=== PATIENT | female | born 2000 | race Two or more races ===

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

== ENCOUNTER 2018-08-15 12:40 | Emergency (ER) | payer SELFPAY ==
[2018-08-15 12:44] VITALS: BP 121/74
[2018-08-15] MEDS ORDERED: HYDROCODONE/ACETAMINOPHEN 5-325 MG TABLET PO ONE (13:02)
[2018-08-15] MEDS ORDERED: LIDOCAINE 5% (700 MG) TRANSDERMAL ADH..PATCH TP ONE (13:02)
--- NOTE | 2018-08-15 13:05 | ER Document Report ---
HPI - HPI Patient complains to provider of: Left knee pain Time Seen by Provider: 08/15/18 12:52 Onset/Duration: Persistent Quality of pain: Achy Pain Level: 4 Context: Patient presents complaining of chronic left knee pain since a dislocation that occurred 2 years ago. Patient states pain is been worse over the past 2 weeks. Patient denies any recent injury. Associated Symptoms: Other - Left knee pain Exacerbated by: Movement, Walking Relieved by: Denies Similar symptoms previously: Yes Recently seen / treated by doctor: No - ROS ROS below otherwise negative: Yes Systems Reviewed and Negative: Yes All other systems reviewed and negative - CONSTITUTIONAL Constitutional: DENIES: Fever - NEURO Neurology: DENIES: Weakness - REPRODUCTIVE Reproductive: DENIES: : - MUSCULOSKELETAL Musculoskeletal: REPORTS: Extremity pain - DERM Skin Color: Normal Skin Problems: None Past Medical History - General Information source: Patient - Social History Smoking Status: Never Smoker Frequency of alcohol use: None Drug Abuse: None Occupation: call center Lives with: Family Family History: None, CAD, DM, Hyperlipidemia, Hypertension, Malignancy, Thyroid Disfunction. denies: COPD, CVA - Medical History Medical History: Negative Neurological Medical History: Denies: Hx Seizures Musculoskeletal Medical History: Reports Hx Musculoskeletal Trauma Past Surgical History: Reports: Hx Abdominal Surgery - neela cyst 02/27 - Immunizations Immunizations up to date: Yes Hx Diphtheria, Pertussis, Tetanus Vaccination: Yes Vertical Provider Document - CONSTITUTIONAL Agree With Documented VS: Yes Exam Limitations: No Limitations General Appearance: WD/WN, No Apparent Distress - INFECTION CONTROL TRAVEL OUTSIDE OF THE [place] IN LAST 30 DAYS: No - HEENT HEENT: Atraumatic, Normocephalic - NECK Neck: Normal Inspection, Supple - RESPIRATORY Respiratory: No Respiratory Distress - CARDIOVASCULAR Pulses: Normal: Posterior tibial, Dorsalis pedis - MUSCULOSKELETAL/EXTREMETIES Musculoskeletal/Extremeties: MAEW, FROM, Tender - Tenderness to left knee along joint line, no laxity with varus or valgus maneuvers. Patellar tendon intact. No joint effusion. Normal skin color temperature overlying joint, No Edema. negative: Eccymosis - NEURO Level of Consciousness: Awake, Alert, Appropriate Motor/Sensory: No Motor Deficit, No Sensory Deficit - DERM Integumentary: Warm, Dry, No Rash Course - Re-evaluation Re-evalutation: 08/15/18 13:10 Patient with chronic left knee joint after patellar dislocation 2 years ago. Patient states pain is worsened over the past 2 weeks. No acute injury. No concern for septic arthritis, dislocation or fracture. Will immobilize and encourage outpatient follow-up with her orthopedic surgeon for recheck. - Vital Signs Vital signs: Temp Pulse Resp BP Pulse Ox 98.3 F 93 H 18 121/74 97 08/15/18 12:43 08/15/18 12:43 08/15/18 12:43 08/15/18 12:43 08/15/18 12:43 Procedures - Immobilization Right Knee Pre-Proc Neuro Vasc Exam: Normal Immobilizer type: Knee immobilizer Performed by: PCT Post-Proc Neuro Vasc Exam: Normal Alignment checked and good: Yes Discharge - Discharge Clinical Impression: Left knee pain Qualifiers: Chronicity: unspecified Qualified Code(s): M25.562 - Pain in left knee Sprain, knee Qualifiers: Encounter type: initial encounter Involved ligament of knee: unspecified ligament Laterality: left Qualified Code(s): S83.92XA - Sprain of unspecified site of left knee, initial encounter Condition: Stable Disposition: HOME, SELF-CARE Instructions: Use of Crutches ([facility]), Ice & Elevation ([facility]), Knee Immobilizing Splint ([facility]), Sprained Knee ([facility]) Additional Instructions: Return immediately for any new or worsening symptoms Followup with your primary care provider, call tomorrow to make a followup appointment Weightbearing as tolerated Follow-up with orthopedics for further evaluation, call Friday for an appointment Prescriptions: Naproxen [Naprosyn 250 Nmg Tablet] 1 tab PO BID #14 tablet Referrals: ELIAS ORDAZ NP [Primary Care Provider] - Follow up as needed [facility] [Provider Group] - 08/17/18
== END 2018-08-15 13:18 | disposition home or self-care (01) ==
LOC: ER 12:40 → EEVIPCON 12:40 → ER 13:18
DX: S83.92XA Sprain of unspecified site of left knee, initial encounter (principal); M25.562 Pain in left knee; G89.29 Other chronic pain; X58.XXXA Exposure to other specified factors, initial encounter
CPT/HCPCS: 99283; L1830

== ENCOUNTER 2019-04-04 18:45 | Emergency (ER) | payer MEDICAID ==
[2019-04-04 18:55] VITALS: BP 122/66
[2019-04-04] MEDS ORDERED: ACETAMINOPHEN 325 MG TABLET PO ONE (19:51)
--- NOTE | 2019-04-04 20:00 | ER Document Report ---
HPI - HPI Patient complains to provider of: Sore throat, congestion Time Seen by Provider: 04/04/19 19:46 Onset: Other - 2 days Onset/Duration: Persistent Quality of pain: Achy Pain Level: 3 Context: Patient presents complaining of sore throat and congestion that started 2 days ago. Patient reports mild cough. No fever. Patient is currently 31 weeks G1, P0. Patient does report movement. Associated Symptoms: Nonproductive cough, Earache, Rhinnorhea, Sore throat. denies: Chest pain, Chills, Fever, Nausea, Vomiting Exacerbated by: Denies Relieved by: Denies Similar symptoms previously: No Recently seen / treated by doctor: No - ROS ROS below otherwise negative: Yes Systems Reviewed and Negative: Yes All other systems reviewed and negative - CONSTITUTIONAL Constitutional: DENIES: Fever - EENT EENT: REPORTS: Sore Throat, Nasal Drainage-Clear, Congestion - CARDIOVASCULAR Cardiovascular: DENIES: Chest pain - RESPIRATORY Respiratory: REPORTS: Coughing. DENIES: Trouble Breathing - GASTROINTESTINAL Gastrointestinal: DENIES: Nausea, Patient vomiting, Diarrhea - URINARY Urinary: DENIES: Dysuria - REPRODUCTIVE Reproductive: REPORTS: :. DENIES: Abnormal bleeding / discharge - DERM Skin Color: Normal Skin Problems: None Past Medical History - General Information source: Patient - Social History Smoking Status: Never Smoker Chew tobacco use (# tins/day): No Frequency of alcohol use: None Drug Abuse: None Occupation: none Lives with: Family Family History: None, CAD, DM, Hyperlipidemia, Hypertension, Malignancy, Thyroid Disfunction. denies: COPD, CVA Patient has suicidal ideation: No Patient has homicidal ideation: No - Medical History Medical History: Negative Pulmonary Medical History: Denies: Hx Asthma Neurological Medical History: Denies: Hx Seizures, Hx Parkinson's Disease GI Medical History: Denies: Hx Cirrhosis, Hx Gastroesophageal Reflux Disease, Hx Ulcer Musculoskeletal Medical History: Reports Hx Musculoskeletal Trauma Past Surgical History: Reports: Hx Abdominal Surgery - neela cyst 02/27 - Immunizations Immunizations up to date: Yes Hx Diphtheria, Pertussis, Tetanus Vaccination: Yes Vertical Provider Document - CONSTITUTIONAL Agree With Documented VS: Yes Exam Limitations: No Limitations General Appearance: WD/WN, No Apparent Distress - INFECTION CONTROL TRAVEL OUTSIDE OF THE [place] IN LAST 30 DAYS: No - HEENT HEENT: Atraumatic, Normocephalic, Pharyngeal Tenderness, Pharyngeal Erythema. negative: Pharyngeal Exudate, Tympanic Membrane Red, Tympanic Membrane Bulging Notes: clear rhinorrhea - NECK Neck: Normal Inspection, Supple. negative: Lymphadenopathy-Left, Lymphadenopathy-Right - RESPIRATORY Respiratory: No Respiratory Distress, Chest Non-Tender, Other - Occasional dry cough. negative: Rhonchi, Wheezing - CARDIOVASCULAR Cardiovascular: Regular Rhythm, No Murmur, Tachycardia - GI/ABDOMEN Gastrointestinal: Abdomen Soft, Abdomen Non-Tender - BACK Back: Normal Inspection - MUSCULOSKELETAL/EXTREMETIES Musculoskeletal/Extremeties: MAEW - NEURO Level of Consciousness: Awake, Alert, Appropriate Motor/Sensory: No Motor Deficit - DERM Integumentary: Warm, Dry, No Rash Course - Re-evaluation Re-evalutation: 04/04/19 20:54 Rapid strep test negative, no concern for [employer]. Respirations even unlabored, patient nontoxic in appearance. Patient without any history of fever. Discussed worsening signs or symptoms that patient should return. Patient encouraged to follow-up with her [employer] tomorrow for recheck. - Vital Signs Vital signs: Temp Pulse Resp BP Pulse Ox 98.0 F 109 H 16 122/66 97 04/04/19 18:52 04/04/19 18:52 04/04/19 18:52 04/04/19 18:52 04/04/19 18:52 - Laboratory Laboratory results interpreted by me: 04/04/19 20:54 Labs- Entire Visit 04/04/19 20:20 Group A Strep Rapid NEGATIVE Discharge - Discharge Clinical Impression: Sore throat, Nasal congestion Condition: Stable Disposition: HOME, SELF-CARE Instructions: Acetaminophen, Sore Throat ([facility]) Additional Instructions: Return immediately for any new or worsening symptoms Followup with your primary care provider, call tomorrow to make a followup appointment Throat culture is pending, we will call if you need any different treatment Referrals: [facility] [Provider Group] - Follow up tomorrow
== END 2019-04-04 21:21 | disposition home or self-care (01) ==
LOC: ER 18:45
DX: O26.893 Other specified pregnancy related conditions, third trimester (principal); J02.9 Acute pharyngitis, unspecified; R09.81 Nasal congestion; R05 Cough; J34.89 Other specified disorders of nose and nasal sinuses; Z3A.31 31 weeks gestation of pregnancy
CPT/HCPCS: 99283; 87070; 87880; J3490

== ENCOUNTER 2019-04-29 17:46 | Outpatient (CLI) | payer MEDICAID ==
[2019-04-29 18:27] LABS: APPEARANCE,URINE SLIGHTLY-CLOUDY; BILIRUBIN,URINE NEGATIVE (NEGATIVE); COLOR,URINE YELLOW; GLUCOSE, URINE NEGATIVE (NEGATIVE); KETONES,URINE TRACE mg/dL (NEGATIVE); LEUKOCYTE ESTERASE,URINE NEGATIVE (NEGATIVE); NITRITE,URINE NEGATIVE (NEGATIVE); PROTEIN,URINE NEGATIVE (NEGATIVE); URINE SPECIFIC GRAVITY 1.016; UROBILINOGEN,URINE NEGATIVE mg/dL (<2.0)
[2019-04-29 18:42] LABS: URINE AMPHETAMINES SCREEN NEGATIVE; URINE BARBITURATES SCREEN NEGATIVE; URINE BENZODIAZEPINES SCREEN NEGATIVE; URINE COCAINE SCREEN NEGATIVE; URINE MARIJUANA (THC) SCREEN NEGATIVE; URINE METHADONE SCREEN NEGATIVE; URINE PHENCYCLIDINE SCREEN NEGATIVE
--- NOTE | 2019-04-29 19:14 | RADIOLOGY REPORT (SQ) ---
EXAM DESCRIPTION: U/S OB LIMITED COMPLETED DATE/TIME: 04/29/2019 6:54 pm REASON FOR STUDY: placenta, well being COMPARISON: None. TECHNIQUE: Limited transabdominal grayscale ultrasound for evaluation of specific requested obstetri [place] parameters. LIMITATIONS: None. FINDINGS: CERVICAL LENGTH: 2.5 cm. Closed. GEOVANI: 17 cm. Cm. FHR: 147 beats per minute. PRESENTATION: Cephalic. PLACENTA: Anterior, grade 1 ANATOMY: Not assessed OTHER: Intrauterine gestation of 34 weeks 3 days. IMPRESSION: LIMITED OBSTETRICAL ULTRASOUND WITH MEASURED PARAMETERS DELINEATED ABOVE. Trimester of : Third trimester - 28 weeks to delivery. TECHNICAL DOCUMENTATION: JOB ID: [id number] 2010 [employer]- All Rights Reserved Reading location - IP/workstation name: [email or web address]
[2019-04-29 19:20] LABS: ABSOLUTE LYMPHOCYTES (AUTO) 1.4 10^3/uL (0.5-4.7); ABSOLUTE MONOCYTES (AUTO) 0.5 10^3/uL (0.1-1.4); ABSOLUTE NEUT (AUTO) 4.9 10^3/uL (1.7-8.2); BASOPHILS % (AUTO) 0.3 % (0-2); EOSINOPHILS % (AUTO) 0.5 % (0-6); HEMATOCRIT 33.2 % (36.0-47.0); HEMOGLOBIN 11.3 g/dL (12.0-15.5); LYMPHOCYTES % (AUTO) 20.2 % (13-45); MEAN CORPUSCULAR HEMOGLOBIN 24.6 pg (27.0-33.4); MEAN CORPUSCULAR HGB CONC 34.1 g/dL (32.0-36.0); MEAN CORPUSCULAR VOLUME 72 fl (80-97); MONOCYTES % (AUTO) 6.8 % (3-13); PLATELET COUNT 261 10^3/uL (150-450); RED BLOOD COUNT 4.61 10^6/uL (3.72-5.28); RED CELL DISTRIBUTION WIDTH 15.8 % (11.5-14.0); SEGMENTED NEUTROPHILS % (AUTO) 72.2 % (42-78); TOTAL CELLS COUNTED % (AUTO) 100 %; WHITE BLOOD COUNT 6.8 10^3/uL (4.0-10.5)
[2019-04-29 19:27] LABS: INTERNATIONAL RATION (INR) 0.97; PROTHROMBIN TIME 12.9 SEC (11.4-15.4)
[2019-04-29 19:28] LABS: PARTIAL THROMBOPLASTIN TIME 28.2 SEC (23.5-35.8)
--- NOTE | 2019-04-29 19:52 | Non Stress Test Report ---
Non Stress Test Datetime Report Generated by CPN: 04/29/2019 19:51 DEMOGRAPHIC EGA NST: 34.3 VITAL SIGNS Temperature - NST: 98.7 Pulse - NST: 108 RESP - NST: 16 NBPSYS NST: 117 NBPDIA NST: 64 MONITORING Monitor Explained: Monitor Explained; Test Explained; Patient Verbalized Understanding Time on Monitor: 04/29/2019 18:00 Time off Monitor: 04/29/2019 19:41 NST Duration: 101 NST INTERVENTIONS NST Interventions: PO Hydration Physician Notified NST: Dr. Doan BABY A: [id number] BABY A Movement : Present Contraction Frequency : none FHR Baseline : 140 Accelerations : 15X15 Decelerations : None Variability : Moderate 6-25bpm NST Review: Meets Criteria for Reactive NST NST Review and Verified By : Bneny Pillai RN NST Results: Reactive NST REPORT Report Trigger: Send Report
[2019-04-29 22:00] LABS: RHOGAM DOSE INDICATED 0 VIAL(S)
== END 2019-04-29 19:45 | disposition home or self-care (01) ==
LOC: LC 17:46
PROVIDERS: ATTEND Student in an Organized Health Care Education/Training Program
PROC: 4A1HXCZ Monitoring of Products of Conception, Cardiac Rate, External Approach (ICD-10-PCS; principal; 2019-04-29)
DX: O36.8130 Decreased fetal movements, third trimester, not applicable or unspecified (principal); Z3A.34 34 weeks gestation of pregnancy
CPT/HCPCS: 36415; 59025; 76815; 80307; 81005; 84112; 85025; 85460; 85610; 85730; 86900; 86901

== ENCOUNTER 2019-05-27 14:23 | Outpatient (CLI) | payer MEDICAID ==
--- NOTE | 2019-05-27 15:39 | Non Stress Test Report ---
Non Stress Test Datetime Report Generated by CPN: 05/27/2019 15:38 DEMOGRAPHIC Test Number: 2 EGA NST: 38.3 INDICATION Indication for Study (NST) Other: repeat NST tachycardia in office VITAL SIGNS Temperature - NST: 98.0 Pulse - NST: 96 RESP - NST: 16 NBPSYS NST: 102 NBPDIA NST: 57 MONITORING Monitor Explained: Monitor Explained; Test Explained; Patient Verbalized Understanding Time on Monitor: 05/27/2019 14:30 Time off Monitor: 05/27/2019 15:20 NST Duration: 50 NST INTERVENTIONS NST Interventions: PO Hydration Physician Notified NST: KDuncan,CNM Physician Notified NST: K Lopez CNM BABY A: [id number] BABY A Movement : Present Contraction Frequency : 0 FHR Baseline : 130 Accelerations : 15X15 Decelerations : None Variability : Moderate 6-25bpm NST Review: Questionable if Meets Criteria for Reactive NST NST Review and Verified By : JNiebuhr,RN NST Results: Reactive NST REPORT Report Trigger: Send Report
== END 2019-05-27 15:34 | disposition home or self-care (01) ==
LOC: LC 14:23
PROVIDERS: ATTEND Student in an Organized Health Care Education/Training Program
DX: O36.8330 Maternal care for abnormalities of the fetal heart rate or rhythm, third trimester, not applicable or unspecified (principal); Z3A.38 38 weeks gestation of pregnancy
CPT/HCPCS: 59025

== ENCOUNTER 2019-06-07 12:17 | Outpatient (CLI) | payer MEDICAID ==
--- NOTE | 2019-06-07 13:02 | Non Stress Test Report ---
Non Stress Test Datetime Report Generated by CPN: 06/07/2019 13:02 DEMOGRAPHIC EGA NST: 40.0 VITAL SIGNS Temperature - NST: 98.2 Pulse - NST: 96 RESP - NST: 18 NBPSYS NST: 118 NBPDIA NST: 57 MONITORING Monitor Explained: Monitor Explained; Test Explained; Patient Verbalized Understanding Time on Monitor: 06/07/2019 12:30 Time off Monitor: 06/07/2019 12:54 NST Duration: 24 NST INTERVENTIONS NST Interventions: PO Hydration Physician Notified NST: C. Seals, CNM BABY A: [id number] BABY A Movement : Present Contraction Frequency : None FHR Baseline : 135 Accelerations : 15X15 Decelerations : None Variability : Moderate 6-25bpm NST Review: Meets Criteria for Reactive NST NST Review and Verified By : Dorcas Bruce RN NST Results: Reactive NST COMMENTS NST Comments: C. Seals, CNM on unit and strip reviewed. NST REPORT Report Trigger: Send Report
== END 2019-06-07 13:01 | disposition home or self-care (01) ==
LOC: LC 12:17
PROVIDERS: ATTEND Student in an Organized Health Care Education/Training Program
DX: O40.3XX0 Polyhydramnios, third trimester, not applicable or unspecified (principal); Z3A.40 40 weeks gestation of pregnancy
CPT/HCPCS: 59025

== ENCOUNTER 2019-06-14 07:06 | Inpatient (IN) | payer MEDICAID ==
[2019-06-14] MEDS ORDERED: RINGERS SOLUTION,LACTATED 1,000 ML IV ONE (07:36)
[2019-06-14] MEDS ORDERED: RINGERS SOLUTION,LACTATED 1,000 ML IV PRN (07:36)
[2019-06-14] MEDS ORDERED: ONDANSETRON HCL INJ/PF 4 MG/2 ML SDV IV PRN (07:46)
[2019-06-14 07:58] LABS: APPEARANCE,URINE TURBID; BILIRUBIN,URINE NEGATIVE (NEGATIVE); COLOR,URINE YELLOW; GLUCOSE, URINE NEGATIVE (NEGATIVE); KETONES,URINE NEGATIVE (NEGATIVE); LEUKOCYTE ESTERASE,URINE TRACE (NEGATIVE); NITRITE,URINE NEGATIVE (NEGATIVE); PROTEIN,URINE 100 mg/dL (NEGATIVE); URINE SPECIFIC GRAVITY 1.006; UROBILINOGEN,URINE NEGATIVE mg/dL (<2.0)
[2019-06-14] MEDS ORDERED: ONDANSETRON HCL INJ/PF 4 MG/2 ML SDV ONE (08:00)
--- NOTE | 2019-06-14 08:14 | Admission Physical ---
Datetime Report Generated by CPN: 06/14/2019 08:14 CURRENT ADMISSION Chief Complaint: Uterine Contractions; Suspected Ruptured Membranes Indication for Induction: Not Applicable Admit Impression : Term, Intrauterine ; Active Labor; Ruptured Membranes Admit Plan: Admit to Unit ALLERGIES Medication Allergies: No Medication Allergies: No Known Allergies (06/14/2019) Latex: No Latex Allergies Food Allergies: none Environmental Allergies: none OBSTETRICAL HISTORY EDC: 06/07/2019 00:00 : 1 Para: 0 Term: 0 : 0 SAB: 0 IAB: 0 Ectopic: 0 Livin Cesareans: 0 VBACs: 0 Multiple Births: 0 Gestational Diabetes: No Rh Sensitization: No Incompetent Cervix: No LAKSHMI: No Infertility: No ART Treatment: No Uterine Anomaly: No IUGR: No Hx Previous C/S: No Macrosomia: No Hx Loss/Stillborn: No PIH: No Hx : No Placenta Previa/Abruption: No Depression/PP Depression: No PTL/PROM: No Post Hemorrhage: No Current Procedures: Ultrasound Obstetrical History Comments: G1-Current SEE RECORDS Alcohol: No Marijuana : No Cocaine: No Other Illicit Drugs: No Cigarettes: Never Smoker. [id number] MEDICAL HISTORY Diabetes: No Blood Transfusion: No Pulmonary Disease (Asthma, TB): No Breast Disease: No Hypertension: No Environmental Program Manager Surgery: No Heart Disease: No Hosp/Surgery: Yes Autoimmune Disorder: No Anesthetic Complications: No Kidney Disease: No Abnormal Pap Smear: No Neuro/Epilepsy: No Psychiatric Disorders: No Other Medical Diseases: No Hepatitis/Liver Disease: No Significant Family History: No Varicosities/Phlebitis: No Trauma/Violence : No Thyroid Dysfunction: No Medical History Comments: Cyst removal 2018, sickle cell trait INFECTIOUS HISTORY Gonorrhea: No Genital Herpes: No Chlamydia: No Tuberculosis: No Syphilis: No Hepatitis: No HIV/AIDS Exposure: No Rash or Viral Illness: No HPV: No PHYSICAL EXAM General: Normal HEENT: Normal Neurologic: Normal Thyroid: Deferred Heart: Normal Lungs: Normal Breast: Deferred Back: Normal Abdomen: Normal Genitourinary Exam: Normal Extremities: Normal DTRs: Normal Pelvic Type: Adequate Vital Signs: Reviewed VAGINAL EXAM Dilatation: 2 Effacement: 80 Station: 0 Contraction Comments: q 4-6 MEMBRANES Membranes: Ruptured Amniotic Fluid Color: Meconium, Light FETUS A EGA: 41.0 Monitoring: External US FHR- Baseline: 125 Variability: Moderate 6-25bpm Accelerations: 15X15 FHR Category: Category II Presentation: Vertex Admit Comment: 18yo at 41+0ega presents for SROM at 0630 with light meconium. POlyhydramnios. +SC trait. FOB negative per patient. GBS negative. Admit and augment with pitocin. Anticipate . efw on 05/13 was 6# PLANS FOR LABOR AND DELIVERY Pain Management: Epidural Feeding Preference: Breast Benefit of Breast Feed Discussed: Yes Circumcision: N/A INFORMED CONSENT Informed Consent Obtained: Vaginal Delivery; Risks, Benefits and Alternatives Discussed Signature: with User ID: [email or web address]
[2019-06-14 08:20] LABS: URINE AMPHETAMINES SCREEN NEGATIVE; URINE BARBITURATES SCREEN NEGATIVE; URINE BENZODIAZEPINES SCREEN NEGATIVE; URINE COCAINE SCREEN NEGATIVE; URINE MARIJUANA (THC) SCREEN NEGATIVE; URINE METHADONE SCREEN NEGATIVE; URINE PHENCYCLIDINE SCREEN NEGATIVE
[2019-06-14 08:40] LABS: ABSOLUTE BASOPHILS # (AUTO) 0.1 10^3/uL (0.0-0.2); ABSOLUTE LYMPHOCYTES (AUTO) 1.9 10^3/uL (0.5-4.7); ABSOLUTE MONOCYTES (AUTO) 0.5 10^3/uL (0.1-1.4); ABSOLUTE NEUT (AUTO) 4.3 10^3/uL (1.7-8.2); BASOPHILS % (AUTO) 0.7 % (0-2); EOSINOPHILS % (AUTO) 0.7 % (0-6); HEMATOCRIT 37.1 % (36.0-47.0); HEMOGLOBIN 12.6 g/dL (12.0-15.5); LYMPHOCYTES % (AUTO) 28.3 % (13-45); MEAN CORPUSCULAR HEMOGLOBIN 25.1 pg (27.0-33.4); MEAN CORPUSCULAR VOLUME 74 fl (80-97); MONOCYTES % (AUTO) 7.6 % (3-13); PLATELET COUNT 181 10^3/uL (150-450); RED BLOOD COUNT 5.02 10^6/uL (3.72-5.28); RED CELL DISTRIBUTION WIDTH 20.7 % (11.5-14.0); SEGMENTED NEUTROPHILS % (AUTO) 62.7 % (42-78); TOTAL CELLS COUNTED % (AUTO) 100 %; WHITE BLOOD COUNT 6.8 10^3/uL (4.0-10.5)
[2019-06-14] MEDS ORDERED: EPHEDRINE SULFATE INJ 50 MG/1 ML AMPULE ONE (08:56)
[2019-06-14] MEDS ORDERED: FENTANYL/BUPIVACAINE/NS/PF 300 MCG/150 ML RTUINJ EPI ONE (08:57)
[2019-06-14] MEDS ORDERED: OXYTOCIN/NORMAL SALINE 20 UNIT/1,000 ML RTUINJ ONE (08:57)
[2019-06-14] MEDS ORDERED: MISOPROSTOL 0.2 MG TABLET ONE (08:57)
[2019-06-14] MEDS ORDERED: LIDOCAINE 1% INJ-PF (10 MG/ML) 30 ML SDV ONE (08:57)
[2019-06-14] MEDS ORDERED: BUPIVACAINE HCL 0.25 % INJ/PF (2.5 MG/1 ML) 30 ML VIAL ONE (08:57)
[2019-06-14] MEDS ORDERED: OXYTOCIN 10 UNIT/ML VIAL ONE (08:57)
[2019-06-14] MEDS ORDERED: MISOPROSTOL 0.1 MG TABLET PR ONE (13:00)
[2019-06-14] MEDS ORDERED: NA PHOS,M-B/NA PHOS,DI-BA (ADULT) 133 ML ENEMA PR PRN (13:25)
[2019-06-14] MEDS ORDERED: PROMETHAZINE HCL 25 MG TABLET PO PRN (13:25)
[2019-06-14] MEDS ORDERED: MAGNESIUM HYDROXIDE SUSP 30 ML UDCUP PO PRN (13:25)
[2019-06-14] MEDS ORDERED: PROMETHAZINE HCL INJ 25 MG/1 ML VIAL IV PRN (13:25)
[2019-06-14] MEDS ORDERED: GLYCERIN/WITCH HAZEL LEAF 1 EACH MED..WIPE TP PRN (13:25)
[2019-06-14] MEDS ORDERED: DIPH/PERTUSS(ACELL)/TETANUS VAC/PF 0.5 ML SYR (>=10YO) IM PRN (13:25)
[2019-06-14] MEDS ORDERED: DIBUCAINE 1% OINTMENT 28 GM TP PRN (13:25)
[2019-06-14] MEDS ORDERED: MEASLES,MUMPS&RUBELLA VACC/PF 0.5 ML VIAL SUBCUT PRN (13:25)
[2019-06-14] MEDS ORDERED: DIPHENHYDRAMINE HCL 25 MG CAPSULE PO PRN (13:25)
[2019-06-14] MEDS ORDERED: PSEUDOEPHEDRINE HCL 30 MG TABLET PO PRN (13:25)
[2019-06-14] MEDS ORDERED: PROMETHAZINE HCL 25 MG SUPP.RECT PR PRN (13:25)
[2019-06-14] MEDS ORDERED: OXYTOCIN/NORMAL SALINE 20 UNIT/1,000 ML RTUINJ IV PRN (13:25)
[2019-06-14] MEDS ORDERED: BENZOCAINE/MENTHOL AEROSOL SPRAY 56 ML ONE (15:14)
[2019-06-14] MEDS ORDERED: IBUPROFEN 800 MG TABLET ONE (15:14)
[2019-06-14] MEDS: IBUPROFEN 800 MG TABLET PO SCH ×2 (15:15→22:51)
[2019-06-14] MEDS: BENZOCAINE/MENTHOL AEROSOL SPRAY 56 ML TOP PRN (15:16)
[2019-06-14] MEDS: FERROUS SULFATE 325 MG TABLET PO SCH (18:27)
[2019-06-14] MEDS: DOCUSATE SODIUM 100 MG CAPSULE PO SCH (18:27)
[2019-06-14] MEDS: FAMOTIDINE 20 MG TABLET PO SCH (22:51)
[2019-06-15] MEDS: ACETAMINOPHEN 325 MG TABLET PO PRN (04:14)
[2019-06-15] MEDS: IBUPROFEN 800 MG TABLET PO SCH ×3 (05:29→21:39)
[2019-06-15 06:56] LABS: HEMATOCRIT 31.4 % (36.0-47.0); HEMOGLOBIN 10.8 g/dL (12.0-15.5); MEAN CORPUSCULAR HEMOGLOBIN 25.4 pg (27.0-33.4); MEAN CORPUSCULAR HGB CONC 34.5 g/dL (32.0-36.0); MEAN CORPUSCULAR VOLUME 74 fl (80-97); PLATELET COUNT 184 10^3/uL (150-450); RED BLOOD COUNT 4.27 10^6/uL (3.72-5.28); RED CELL DISTRIBUTION WIDTH 20.5 % (11.5-14.0); WHITE BLOOD COUNT 8.9 10^3/uL (4.0-10.5)
[2019-06-15] MEDS: PRENATAL VITAMIN W DHA CAPSULE PO SCH (10:23)
[2019-06-15] MEDS: DOCUSATE SODIUM 100 MG CAPSULE PO SCH ×2 (10:24→17:51)
[2019-06-15] MEDS: FERROUS SULFATE 325 MG TABLET PO SCH ×2 (10:24→17:50)
[2019-06-15] MEDS: FAMOTIDINE 20 MG TABLET PO SCH ×2 (10:24→21:40)
[2019-06-15] MEDS: SENNOSIDES/DOCUSATE 8.6-50 MG 1 EACH TABLET PO SCH (10:24)
--- NOTE | 2019-06-15 16:54 | PDOC PROGRESS REPORT ---
Subjective-OB Progress Note for:: 06/15/19 Subjective: reports bleeding slowing, pain controlled with current meds. denies needs Physical Exam (OB) Vital Signs: Temp Pulse Resp BP Pulse Ox 98.1 F 96 16 116/59 L 97 06/15/19 07:49 06/15/19 07:49 06/15/19 07:49 06/15/19 07:49 06/15/19 07:49 Intake & Output 06/14/19 06/15/19 06/16/19 06:59 06:59 06:59 Intake Total 450 Balance 450 Weight 85.3 kg - Abdomen Description: Soft Hernia Present: No Fundal Description: Firm, Midline Fundal Height: u/u - u/2 - Abdominal Distension: No distension Tenderness: Nontender - Extremities Lower extremities: Arturo's sign - neg Calf: Normal, Nontender Objective-Diagnostic Laboratory: 06/15/19 06:26 06/15/19 06:26 WBC 8.9 RBC 4.27 Hgb 10.8 L Hct 31.4 L MCV 74 L MCH 25.4 L MCHC 34.5 RDW 20.5 H Plt Count 184 Assessment and Plan(PN) - Time Spent with Patient Time with patient: Less than 15 minutes - Disposition Anticipated Discharge: Home Within: within 24 hours
[2019-06-15] MEDS: BENZOCAINE/MENTHOL AEROSOL SPRAY 56 ML TOP PRN (20:46)
[2019-06-16] MEDS: IBUPROFEN 800 MG TABLET PO SCH ×2 (05:21→14:00)
[2019-06-16 08:36] VITALS: BP 123/69
[2019-06-16] MEDS: FAMOTIDINE 20 MG TABLET PO SCH (10:59)
[2019-06-16] MEDS: PRENATAL VITAMIN W DHA CAPSULE PO SCH (10:59)
[2019-06-16] MEDS: DOCUSATE SODIUM 100 MG CAPSULE PO SCH (10:59)
[2019-06-16] MEDS: SENNOSIDES/DOCUSATE 8.6-50 MG 1 EACH TABLET PO SCH (10:59)
[2019-06-16] MEDS: FERROUS SULFATE 325 MG TABLET PO SCH (10:59)
[2019-06-16] MEDS: ACETAMINOPHEN 325 MG TABLET PO PRN (11:03)
--- NOTE | 2019-06-16 15:16 | PDOC DISCHARGE SUMMARY ---
Impression - Admit/DC Date/PCP Admission Date/Primary Care Provider: 06/14/19 07:46 DINORA IRENE MD Discharge Date: 06/16/19 - Discharge Diagnosis (1) High vaginal laceration during delivery, delivered Is this a current diagnosis for this admission?: Yes (2) Meconium in amniotic fluid Is this a current diagnosis for this admission?: Yes (3) Post-term Is this a current diagnosis for this admission?: Yes (4) Spontaneous rupture of amniotic membranes Is this a current diagnosis for this admission?: Yes (5) Vaginal delivery Is this a current diagnosis for this admission?: Yes - Assessment Summary: 18yo G1 now P1 s/p ppd 2, stable and ready for discharge, understands warning s/s - Additional Information Resuscitation Status: Full Code Discharge Diet: As Tolerated, Regular Discharge Activity: Activity As Tolerated, Balance Activity w/Rest, No Lifting Over 10 Pounds, No Lifting/Push/Pulling, Pelvic Rest, No tub bath, Walk Frequently Referrals: DINORA IRENE MD [Primary Care Provider] - Prescriptions: Ibuprofen [Motrin 800 mg Tablet] 800 mg PO Q8HP PRN #20 tablet PRN Reason: Abdominal Cramping Home Medications: 95/Iron Fum/Folic/Dha [ + Dha Combo Pack] 1 tab PO DAILY 04/29/19 Ascorbic Acid [Vitamin C] 2 tab.chew PO DAILY 06/07/19 Ibuprofen [Motrin 800 mg Tablet] 800 mg PO Q8HP PRN #20 tablet 06/16/19 Results Laboratory Results: WBC 8.9 10^3/uL (4.0-10.5) 06/15/19 06:26 RBC 4.27 10^6/uL (3.72-5.28) 06/15/19 06:26 Hgb 10.8 g/dL (12.0-15.5) L 06/15/19 06:26 Hct 31.4 % (36.0-47.0) L 06/15/19 06:26 MCV 74 fl (80-97) L 06/15/19 06:26 MCH 25.4 pg (27.0-33.4) L 06/15/19 06:26 MCHC 34.5 g/dL (32.0-36.0) 06/15/19 06:26 RDW 20.5 % (11.5-14.0) H 06/15/19 06:26 Plt Count 184 10^3/uL (150-450) 06/15/19 06:26 Lymph % (Auto) 28.3 % (13-45) 06/14/19 08:18 [place] % (Auto) 7.6 % (3-13) 06/14/19 08:18 Eos % (Auto) 0.7 % (0-6) 06/14/19 08:18 Baso % (Auto) 0.7 % (0-2) 06/14/19 08:18 Absolute Neuts (auto) 4.3 10^3/uL (1.7-8.2) 06/14/19 08:18 Absolute Lymphs (auto) 1.9 10^3/uL (0.5-4.7) 06/14/19 08:18 Absolute Monos (auto) 0.5 10^3/uL (0.1-1.4) 06/14/19 08:18 Absolute Eos (auto) 0.0 10^3/uL (0.0-0.6) 06/14/19 08:18 Absolute Basos (auto) 0.1 10^3/uL (0.0-0.2) 06/14/19 08:18 Seg Neutrophils % 62.7 % (42-78) 06/14/19 08:18 Urine Color YELLOW 06/14/19 07:30 Urine Appearance TURBID 06/14/19 07:30 Urine pH 8.0 (5.0-9.0) 06/14/19 07:30 Ur Specific [place] 1.006 06/14/19 07:30 Urine Protein 100 mg/dL (NEGATIVE) H 06/14/19 07:30 Urine Glucose (UA) NEGATIVE mg/dL (NEGATIVE) 06/14/19 07:30 Urine Ketones NEGATIVE mg/dL (NEGATIVE) 06/14/19 07:30 Urine Blood MODERATE (NEGATIVE) H 06/14/19 07:30 Urine Nitrite NEGATIVE (NEGATIVE) 06/14/19 07:30 Urine Bilirubin NEGATIVE (NEGATIVE) 06/14/19 07:30 Urine Urobilinogen NEGATIVE mg/dL (<2.0) 06/14/19 07:30 Ur Leukocyte Esterase TRACE (NEGATIVE) H 06/14/19 07:30 Urine Ascorbic Acid NEGATIVE (NEGATIVE) 06/14/19 07:30 Membranes Rupture POSITIVE (NEGATIVE) H 06/14/19 07:40 Urine Opiates Screen NEGATIVE 06/14/19 07:30 Urine Methadone Screen NEGATIVE 06/14/19 07:30 Ur Barbiturates Screen NEGATIVE 06/14/19 07:30 Ur Phencyclidine Scrn NEGATIVE 06/14/19 07:30 Ur Amphetamines Screen NEGATIVE 06/14/19 07:30 U Benzodiazepines Scrn NEGATIVE 06/14/19 07:30 Urine Cocaine Screen NEGATIVE 06/14/19 07:30 U Marijuana (THC) Screen NEGATIVE 06/14/19 07:30 RPR NONREACTIVE (NONREACTIVE) 06/14/19 08:18 Blood Type A POSITIVE 06/14/19 08:18 Antibody Screen NEGATIVE 06/14/19 08:18
--- NOTE | 2019-06-22 07:07 | Delivery Summary ---
Del Sum A-C Datetime Report Generated by CPN: 06/22/2019 07:06 DELIVERY PERSONNEL DELIVERY PERSONNEL: [id number] Delivery Doctor:: Mansi Seals, CNM Labor and Delivery Nurse:: Anitha Rivers RNbarking machine feeder Nurse:: Laya Bruce RN Tool Lapper Hand:: Annmarie Pillai RNC Nursery Nurse:: Luzma Baird RN Nursery Nurse:: Alyssa Garzon RN Mail Processing Machine Operator/JAVA SECURITY ARCHITECT: Debbie Ross, CARGO VESSEL STEWARDESS MATERNAL INFORMATION Delivery Anesthesia: Epidural Medications After Delivery: Pitocin Bolus-Please Comment; Pitocin Drip 20 Units/1000ml NSS Meds After Delivery Comment: 20 Units Pitocin/1000ml NS Provider Comments: called for delivery, pt quickly progressed to c/c/2 with urge to push, began pushing and baby was bradycardic despite position changes and oxygen. FSE also applied. Pt continued pushing with contractions and call placed to Dr. Mendez for vacuum assist but baby delivered prior to his arrival. Baby with vigorous respiratory effort and weak cry at the delivery. Baby placed on maternal abdomen while nursery assessed her on mother's abdomen. Cord allowed to stop pulsating, clamped x2 and cut by FOB (3vc noted, cord blood collected). Placenta delivered spontaneously intact, fundus firm but moderate bleeding with several clots. Vaginal sweep performed, more clots out, bleeding stabilized. Cytotec 1000mcg per rectum given. Lacerations as stated and hemostatic. Mother remains stable and baby taken to nursery by nursery staff due to low oxygen saturation. Fundus remains firm and bleeding stable at this time LABOR SUMMARY EDC: 06/07/2019 00:00 No. Babies in Womb: 1 Attempted: Yes Labor Anesthesia: Epidural LABOR INFORMATION Reason for Induction: Not Applicable Onset of Labor: 06/14/2019 06:00 Oxytocin: Induction Group B Beta Strep: Negative Antibiotics # of Doses: 0 Antibiotics Time of Last Dose: n/a Name of Antibiotic Given: n/a Steroids Given: None Reason Steroids Not Administered: Not Applicable MEMBRANES Membranes Rupture Method: Spontaneous Rupture of Membranes: 06/14/2019 06:00 Length of Rupture (hr): 6.77 Amniotic Fluid Color: Light Meconium Amniotic Fluid Amount: Large Amniotic Fluid Odor: Normal STAGES OF LABOR Stage 3 hr: 0 Stage 3 min: 5 Total Time in Labor hr: 6 Total Time in Labor min: 51 VAGINAL DELIVERY Episiotomy: None Laceration #1: Vaginal Laceration Extension #1: First Degree Other Laceration: right labial Laceration Repair: Yes Laceration Repair Note: left vaginal sidewall laceration repaired with 2-[address]-hemostatis achieved 1%lidocaine used for anesthesia right labial repaired with 3-0 on an SH in the usual fashion Sponge Count Correct: Yes; Vaginal Sweep Performed [place] Count Correct: Yes CSECTION DELIVERY Primary Indication: N/A Secondary Indication: N/A CSection Incidence: N/A Labor: N/A Elective: N/A CSection Incision: N/A BABY A INFORMATION Infant Delivery Date/Time: 06/14/2019 12:46 Method of Delivery: Vaginal Nurse Controlled Delivery: No Born in Route : No : N/A Forceps: N/A Vacuum Extraction: N/A Shoulder Dystocia : No PRESENTATION/POSITION BABY A Presentation: Cephalic Cephalic Presentation: Vertex Vertex Position: Left Occipital Anterior Breech Presentation: N/A PLACENTA INFORMATION BABY A Placenta Delivery Time : 06/14/2019 12:51 Placenta Method of Delivery: Spontaneous Placenta Status: Delivered SCORES BABY A Heart Rate 1 min: >100 bpm Resp Effort 1 min: Slow, Irregular Reflex Irritability 1 min: Cough or Sneeze or Pulls Away Muscle Tone 1 min: Some Flexion of Extremities Color 1 min: Body [place], Extremities Blue Resuscitation Effort 1 min: Tactile Stimulation SCORE 1 MIN: 7 Heart Rate 5 min: >100 bpm Resp Effort 5 min: Slow, Irregular Reflex Irritability 5 min: Cough or Sneeze or Pulls Away Muscle Tone 5 min: Active Motion Color 5 min: Body [place], Extremities Blue Resuscitation Effort 5 min: Tactile Stimulation; Oxygen SCORE 5 MIN: 8 INFORMATION BABY A Gestational Age at Delivery: 41.0 Gestational Status: Late Term- 41- 41.6 Weeks Outcome : Liveborn Infant Condition : Stable Sex: Female IDENTIFICATION BABY A Verification Date/Time: 06/14/2019 13:45 ID Band Number: [id number] Mother's Name Verified: Yes Infant RN Verifying : Latonia Bruce CORD INFORMATION BABY A No. Cord Vessels: 3 Nuchal Cord : N/A Cord Blood Taken: Yes-For Storage (Mom's Blood type +) Suction: Mouth; Nose; Pharynx ASSESSMENT BABY A Skin to Skin: No BABY B INFORMATION : N/A SIGNATURES Assignment: Damain Mendez, MD Signature: with User ID: [email or web address] : with User ID: [email or web address]
== END 2019-06-16 14:00 | disposition home or self-care (01) | DRG 807 ==
LOC: LC 07:06 → LR 07:46 → 2S 15:55
PROVIDERS: ADMIT Obstetrics & Gynecology; ATTEND Obstetrics & Gynecology
PROC: 10E0XZZ Delivery of Products of Conception, External Approach (ICD-10-PCS; principal; 2019-06-14)
PROC: 0HQ9XZZ Repair Perineum Skin, External Approach (ICD-10-PCS; 2019-06-14)
DX: O40.3XX0 Polyhydramnios, third trimester, not applicable or unspecified (principal); Z37.0 Single live birth; O99.02 Anemia complicating childbirth; D57.3 Sickle-cell trait; O70.0 First degree perineal laceration during delivery; Z3A.41 41 weeks gestation of pregnancy
CPT/HCPCS: 1967; 36415; 80307; 81005; 84112; 85025; 85027; 86592; 86850; 86900; 86901; 94760; J2405; J2590; J3010; J3490